=== PATIENT | male | born 1995 | race Caucasian/White ===

== ENCOUNTER 2018-04-18 16:27 | Emergency (ER) | payer BC, OTHER ==
[2018-04-18 16:46] VITALS: BP 119/77
--- NOTE | 2018-04-18 16:54 | EDM.PDOC ---
ED HPI GENERAL MEDICAL PROBLEM - General Chief Complaint: ENT Problem Stated Complaint: EAR PAIN SENT BY JACKIE Time Seen by Provider: 04/18/18 16:41 - History of Present Illness INITIAL COMMENTS - FREE TEXT/NARRATIVE: Patient is 22-year-old male accompanied by mother who was sent to the emergency department from clinic, for further evaluation of ear pain, headache and low- grade fever. Patient said that he developed right-sided ear pain about 4-5 days ago which progressively worsen for last 2-3 days which according by headache. He pointed me towards occipital region where he stated that has been having headache for last couple of days which is constant in nature. Currently he related his discomfort level about 5 or 6 on a scale of 0-10. He has history of ulcerative colitis which he subsequently underwent surgery to total colectomy and now he has a J-pouch. He has been having multiple watery loose stools for last few days which he has been placed on Lomotil. He also takes ciprofloxacin and Flagyl prophylactically as well as probiotic on a routine basis. He stated that today he has been having headache with episode of vomiting, low-grade fever. Headache is associated with photosensitivity. However patient denies any history of migraine or cluster type headache. He denies any use of medication to alleviate pain prior to arrival today. He denies any recent traveling or known sick contacts. He denies any chills, back pain, abdominal pain, chest pain or shortness of breath, numbness or weakness, diplopia, blurred vision, or excessive tearing. He denies any other concern at this time. posterior head Pain Score (Numeric/FACES): 6 - Related Data Allergies Allergy/AdvReac Type Severity Reaction Status Date / Time No Known Allergies Allergy Verified 04/18/18 16:46 Home Meds: Home Meds Acetaminophen/Butalbital/Caff [Fioricet 325-50-40 MG] 1 each PO Q8HR PRN #21 tab 04/18/18 [Rx] Ciprofloxacin [Ciprofloxacin HCl] 500 mg PO BID 04/18/18 [History] Colestipol [Colestipol HCl] 1 g PO TID 04/18/18 [History] Diphenoxylate HCl/Atropine [Lomotil] 1 tab PO Q6H PRN 04/18/18 [History] L.acidoph,Paracasei, B.lactis [Probiotic] 1 each PO DAILY PRN 04/18/18 [History] metroNIDAZOLE [Flagyl] 500 mg PO Q8H 04/18/18 [History] Past Medical History - Past Surgical History GI Surgical History: Reports: Other (See Below) ED ROS ENT - Review of Systems Review Of Systems: ROS reveals no pertinent complaints other than HPI. ED EXAM, ENT - Physical Exam Exam: See Below Exam Limited By: No Limitations General Appearance: Alert, WD/WN, No Apparent Distress Eye Exam: Bilateral Eye: Conjunctival Injection (Negative), EOMI, Nystagmus ( Negative), PERRL Ears: Normal Canal, Hearing Grossly Normal, TM Erythema. No: Mastoid Tenderness , Canal Blood, Canal Discharge, Canal Foreign Body, TM Bulging, TM Perforation Nose: Normal Inspection, Normal Mucousa, No Blood Mouth/Throat: Normal Inspection, Normal Gums, Normal Lips, Normal Oropharynx, Normal Teeth. No: Pharyngeal Erythema, Throat Swelling, Tongue Swelling, Tonsillar Erythema, Tonsillar Exudates, Tonsillar Swelling, Trismus Head: Atraumatic, Normocephalic. No: Scalp Tenderness, Facial Swelling, Facial Tenderness Neck: Normal Inspection, Supple, Non-Tender, Full Range of Motion, Other ( Negative Brudzinski and Kernig signs) Respiratory/Chest: No Respiratory Distress, Lungs Clear, Normal Breath Sounds Cardiovascular: Normal Peripheral Pulses, Regular Rate, Rhythm GI/Abdominal: Normal Bowel Sounds, Soft, Non-Tender Back: Normal Inspection, Full Range of Motion Extremities: Normal Inspection, Normal Range of Motion, Non-Tender, No Pedal Edema, Normal Capillary Refill Neurological: Alert, Oriented, Normal Cognition, Normal Gait, Normal Reflexes, No Motor/Sensory Deficits Psychiatric: Normal Affect, Normal Mood Skin: Warm, Dry, Intact, Normal Color, No Rash Lymphatic: No Adenopathy Course - Vital Signs Last Recorded V/S: Last Vital Signs Temp 36.8 C 04/18/18 19:16 Pulse 94 04/18/18 19:16 Resp 18 04/18/18 19:16 BP 119/77 04/18/18 19:16 Pulse Ox 95 04/18/18 19:16 - Orders/Labs/Meds Orders: Active Orders 24 hr Category Date Time Status CULTURE BLOOD [BC] Stat Lab 04/18/18 17:56 Received CULTURE BLOOD [BC] Stat Lab 04/18/18 18:06 Received CULTURE CSF + SMEAR [RM] Stat Lab 04/18/18 19:39 Received Blood Culture x2 Reflex Set [OM.PC] Stat Oth 04/18/18 16:59 Ordered Labs: Laboratory Tests 04/18/18 04/18/18 04/18/18 Range/Units 17:12 17:25 17:25 WBC 3.80 L (4.23-9.07) K/mm3 RBC 5.22 (4.63-6.08) M/mm3 Hgb 15.0 (13.7-17.5) gm/L Hct 44.1 (40.1-51.0) % MCV 84.5 (79.0-92.2) fl MCH 28.7 (25.7-32.2) pg MCHC 34.0 (32.2-35.5) g/dl RDW Std Deviation 45.1 H (35.1-43.9) fL Plt Count 238 (163-337) K/mm3 MPV 10.2 (9.4-12.3) fl Neut % (Auto) 69.9 H (34.0-67.9) % Lymph % (Auto) 11.3 L (21.8-53.1) % [place] % (Auto) 18.2 H (5.3-12.2) % Eos % (Auto) 0.3 L (0.8-7.0) Baso % (Auto) 0.0 L (0.1-1.2) % Neut # (Auto) 2.66 (1.78-5.38) K/mm3 Lymph # (Auto) 0.43 L (1.32-3.57) K/mm3 [place] # (Auto) 0.69 (0.30-0.82) K/mm3 Eos # (Auto) 0.01 L (0.04-0.54) K/mm3 Baso # (Auto) 0.00 L (0.01-0.08) K/mm3 Manual Slide Review Normal smear PT 11.9 (9.5-12.1) SECONDS INR 1.09 Sodium (136-145) mEq/L Potassium (3.5-5.1) mEq/L Chloride (98-107) mEq/L Carbon Dioxide (21-32) mEq/L Anion Gap (5-15) BUN (7-18) mg/dL Creatinine (0.7-1.3) mg/dL Est Cr Clr Drug Dosing mL/min Estimated GFR (MDRD) (>60) mL/min BUN/Creatinine Ratio (14-18) Glucose (74-106) mg/dL Lactic Acid (0.4-2.0) mmol/L Calcium (8.5-10.1) mg/dL Magnesium (1.8-2.4) mg/dl Total Bilirubin (0.2-1.0) mg/dL AST (15-37) U/L ALT (16-63) U/L Alkaline Phosphatase (46-116) U/L C-Reactive Protein (<1.0) mg/dL Total Protein (6.4-8.2) g/dl Albumin (3.4-5.0) g/dl Globulin gm/dL Albumin/Globulin Ratio (1-2) Urine Color Yellow (Yellow) Urine Appearance Clear (Clear) Urine pH 6.5 (5.0-8.0) Ur Specific [place] 1.025 (1.005-1.030) Urine Protein 1+ H (Negative) Urine Glucose (UA) Negative (Negative) Urine Ketones Negative (Negative) Urine Occult Blood Trace-lysed H (Negative) Urine Nitrite Negative (Negative) Urine Bilirubin 1+ H (Negative) Urine Urobilinogen 1.0 (0.2-1.0) Ur Leukocyte Esterase Negative (Negative) Urine RBC 5-10 H (0-5) /hpf Urine WBC 0-5 (0-5) /hpf Ur Epithelial Cells 0-5 (0-5) /hpf Amorphous Sediment Few H (NOT SEEN) /hpf Urine Bacteria Few (FEW) /hpf Urine Mucus Few (FEW) /hpf CSF Tube Number CSF Volume ml CSF Appearance (CLEAR) CSF Color CSF Supernatant Appear CSF WBC (0-8) /uL CSF RBC (0-8) /mm3 CSF Seg Neutrophils CSF Lymphocytes CSF Diff Comment CSF Glucose (40-70) mg/dl CSF Total Protein (15-45) mg/dl 04/18/18 04/18/18 04/18/18 Range/Units 17:25 17:56 19:39 WBC (4.23-9.07) K/mm3 RBC (4.63-6.08) M/mm3 Hgb (13.7-17.5) gm/L Hct (40.1-51.0) % MCV (79.0-92.2) fl MCH (25.7-32.2) pg MCHC (32.2-35.5) g/dl RDW Std Deviation (35.1-43.9) fL Plt Count (163-337) K/mm3 MPV (9.4-12.3) fl Neut % (Auto) (34.0-67.9) % Lymph % (Auto) (21.8-53.1) % [place] % (Auto) (5.3-12.2) % Eos % (Auto) (0.8-7.0) Baso % (Auto) (0.1-1.2) % Neut # (Auto) (1.78-5.38) K/mm3 Lymph # (Auto) (1.32-3.57) K/mm3 [place] # (Auto) (0.30-0.82) K/mm3 Eos # (Auto) (0.04-0.54) K/mm3 Baso # (Auto) (0.01-0.08) K/mm3 Manual Slide Review PT (9.5-12.1) SECONDS INR Sodium 134 L (136-145) mEq/L Potassium 3.5 (3.5-5.1) mEq/L Chloride 98 (98-107) mEq/L Carbon Dioxide 24 (21-32) mEq/L Anion Gap 15.5 H (5-15) BUN 14 (7-18) mg/dL Creatinine 1.2 (0.7-1.3) mg/dL Est Cr Clr Drug Dosing 95.74 mL/min Estimated GFR (MDRD) > 60 (>60) mL/min BUN/Creatinine Ratio 11.7 L (14-18) Glucose 119 H (74-106) mg/dL Lactic Acid 1.3 (0.4-2.0) mmol/L Calcium 8.7 (8.5-10.1) mg/dL Magnesium 2.2 (1.8-2.4) mg/dl Total Bilirubin 1.9 H (0.2-1.0) mg/dL AST 36 (15-37) U/L ALT 52 (16-63) U/L Alkaline Phosphatase 60 (46-116) U/L C-Reactive Protein 11.6 H* (<1.0) mg/dL Total Protein 7.7 (6.4-8.2) g/dl Albumin 3.6 (3.4-5.0) g/dl Globulin 4.1 gm/dL Albumin/Globulin Ratio 0.9 L (1-2) Urine Color (Yellow) Urine Appearance (Clear) Urine pH (5.0-8.0) Ur Specific [place] (1.005-1.030) Urine Protein (Negative) Urine Glucose (UA) (Negative) Urine Ketones (Negative) Urine Occult Blood (Negative) Urine Nitrite (Negative) Urine Bilirubin (Negative) Urine Urobilinogen (0.2-1.0) Ur Leukocyte Esterase (Negative) Urine RBC (0-5) /hpf Urine WBC (0-5) /hpf Ur Epithelial Cells (0-5) /hpf Amorphous Sediment (NOT SEEN) /hpf Urine Bacteria (FEW) /hpf Urine Mucus (FEW) /hpf CSF Tube Number 1 CSF Volume 1 ml CSF Appearance Clear (CLEAR) CSF Color Colorless CSF Supernatant Appear No xanthochromia CSF WBC 7 (0-8) /uL CSF RBC 69 H (0-8) /mm3 CSF Seg Neutrophils Not Reportable CSF Lymphocytes Not Reportable CSF Diff Comment See note CSF Glucose (40-70) mg/dl CSF Total Protein (15-45) mg/dl 04/18/18 Range/Units 19:39 WBC (4.23-9.07) K/mm3 RBC (4.63-6.08) M/mm3 Hgb (13.7-17.5) gm/L Hct (40.1-51.0) % MCV (79.0-92.2) fl MCH (25.7-32.2) pg MCHC (32.2-35.5) g/dl RDW Std Deviation (35.1-43.9) fL Plt Count (163-337) K/mm3 MPV (9.4-12.3) fl Neut % (Auto) (34.0-67.9) % Lymph % (Auto) (21.8-53.1) % [place] % (Auto) (5.3-12.2) % Eos % (Auto) (0.8-7.0) Baso % (Auto) (0.1-1.2) % Neut # (Auto) (1.78-5.38) K/mm3 Lymph # (Auto) (1.32-3.57) K/mm3 [place] # (Auto) (0.30-0.82) K/mm3 Eos # (Auto) (0.04-0.54) K/mm3 Baso # (Auto) (0.01-0.08) K/mm3 Manual Slide Review PT (9.5-12.1) SECONDS INR Sodium (136-145) mEq/L Potassium (3.5-5.1) mEq/L Chloride (98-107) mEq/L Carbon Dioxide (21-32) mEq/L Anion Gap (5-15) BUN (7-18) mg/dL Creatinine (0.7-1.3) mg/dL Est Cr Clr Drug Dosing mL/min Estimated GFR (MDRD) (>60) mL/min BUN/Creatinine Ratio (14-18) Glucose (74-106) mg/dL Lactic Acid (0.4-2.0) mmol/L Calcium (8.5-10.1) mg/dL Magnesium (1.8-2.4) mg/dl Total Bilirubin (0.2-1.0) mg/dL AST (15-37) U/L ALT (16-63) U/L Alkaline Phosphatase (46-116) U/L C-Reactive Protein (<1.0) mg/dL Total Protein (6.4-8.2) g/dl Albumin (3.4-5.0) g/dl Globulin gm/dL Albumin/Globulin Ratio (1-2) Urine Color (Yellow) Urine Appearance (Clear) Urine pH (5.0-8.0) Ur Specific [place] (1.005-1.030) Urine Protein (Negative) Urine Glucose (UA) (Negative) Urine Ketones (Negative) Urine Occult Blood (Negative) Urine Nitrite (Negative) Urine Bilirubin (Negative) Urine Urobilinogen (0.2-1.0) Ur Leukocyte Esterase (Negative) Urine RBC (0-5) /hpf Urine WBC (0-5) /hpf Ur Epithelial Cells (0-5) /hpf Amorphous Sediment (NOT SEEN) /hpf Urine Bacteria (FEW) /hpf Urine Mucus (FEW) /hpf CSF Tube Number CSF Volume ml CSF Appearance (CLEAR) CSF Color CSF Supernatant Appear CSF WBC (0-8) /uL CSF RBC (0-8) /mm3 CSF Seg Neutrophils CSF Lymphocytes CSF Diff Comment CSF Glucose 65.0 (40-70) mg/dl CSF Total Protein 29.9 (15-45) mg/dl Meds: Medications Discontinued Medications Generic Name Dose Route Start Last Admin Trade Name Freq PRN Reason Stop Dose Admin Dexamethasone 10 mg 04/18/18 17:58 04/18/18 18:22 Dexamethasone IVPUSH 04/18/18 17:59 10 mg ONETIME ONE Administration Diphenhydramine HCl 25 mg 04/18/18 17:57 04/18/18 18:21 Benadryl IVPUSH 04/18/18 17:58 25 mg ONETIME ONE Administration Hydromorphone HCl 0.5 mg 04/18/18 20:11 04/18/18 20:34 Dilaudid IVPUSH 04/18/18 20:12 0.5 mg ONETIME ONE Administration Sodium Chloride 1,000 mls @ 999 mls/hr 04/18/18 17:00 04/18/18 17:25 Normal Saline IV 999 mls/hr ASDIRECTED FLO Administration Prochlorperazine Edisylate 5 51 mls @ 150 mls/hr 04/18/18 17:59 04/18/18 18: 24 mg/ Sodium Chloride IV 04/18/18 18:19 150 mls/hr ONETIME ONE Administration Sodium Chloride 1,000 mls @ 250 mls/hr 04/18/18 20:15 04/18/18 20:34 Normal Saline IV 250 mls/hr ASDIRECTED FLO Administration - Re-Assessments/Exams Free Text/Narrative Re-Assessment/Exam: 04/18/18 18:00 Patient reevaluated at bedside. patient still complains of headache, CT scan of the head showed no acute intracranial abnormality at this time; however, it did show mild splenoid and anterior left ethmoid sinusitis, I ordered dexamethasone 10 mg IV, Compazine 5 IV, Benadryl 25 IV once. Will continue monitor patient at this time 04/18/18 18:40 At this time patient reevaluated at bedside. Patient still complaining of headache which has not been alleviated despite using intravenous medications in ED and seeing the abnormality in the C-reactive protein results. However, at this time made a decision to do the spinal tape to to exclude possibility of meningitis. I did speak to the patient and mother at bedside regarding spinal tape and explained the risks and benefits of obtaining this procedure to exclude possibility of meningitis. Both agrees to do the exam. 04/18/18 21:15 At this time patient reevaluated at bedside. Currently patient is feeling much better with the use of intravenous Dilaudid. Patient appears to be in no acute cardiopulmonary distress. Denies headache at this time. Still waiting for results of CSF analysis. Once CSF analysis negative patient can be discharged home with close follow-up with a primary care provider. Explained this to patient and mother at bedside. Both agrees with the plan and follow up with her primary care provider as mentioned is to instruction. 04/18/18 22:20 CSF results came back negative for any possibility of meningitis. At this time patient alert, oriented 3, awake, and voluntarily moving all 4 of his extremity at the time of discharge. He denies any headache or photosensitivity at this time. He further denies subjective fever or chills. Departure - Departure Time of Disposition: 22:23 Disposition: Home, Self-Care 01 Condition: Good Clinical Impression: Ear pain, right Headache Qualifiers: Headache type: unspecified - Discharge Information Prescriptions: Acetaminophen/Butalbital/Caff [Fioricet 325-50-40 MG] 1 each PO Q8HR PRN #21 tab PRN Reason: Headache/Pain Instructions: General Headache Without Cause, [id number], Earache, Adult Referrals: Jodi Waldrop NP [Primary Care Provider] - 2 Days (Please call your primary care provider for the reevaluation of the today's emergency visit) Forms: ED Department Discharge - My Orders Last 24 Hours: My Active Orders 04/18/18 16:59 Blood Culture x2 Reflex Set [OM.PC] Stat 04/18/18 17:56 CULTURE BLOOD [BC] Stat 04/18/18 18:06 CULTURE BLOOD [BC] Stat 04/18/18 19:39 CULTURE CSF + SMEAR [RM] Stat - Assessment/Plan Last 24 Hours: My Active Orders 04/18/18 16:59 Blood Culture x2 Reflex Set [OM.PC] Stat 04/18/18 17:56 CULTURE BLOOD [BC] Stat 04/18/18 18:06 CULTURE BLOOD [BC] Stat 04/18/18 19:39 CULTURE CSF + SMEAR [RM] Stat
[2018-04-18] MEDS ORDERED: Sodium Chloride 0.9% 1,000 ML IV SCH ×2 (17:00→20:15)
--- NOTE | 2018-04-18 17:48 | CT ---
Head CT Technique: Multiple axial sections through the brain were obtained. Intravenous contrast was not utilized. Comparison: No prior intracranial imaging. Findings: Ventricles along with basal cisterns and sulci over the convexities are within normal limits for the patient's age. No abnormal parenchymal densities are seen. No evidence of intracranial hemorrhage. No midline shift or mass effect is seen. Bone window settings were reviewed which shows mild mucosal thickening within the sphenoid sinus and anterior ethmoid sinus. Other sinuses that are seen appear clear. No acute calvarial abnormality is appreciated. Impression: 1. Mild areas of mucosal thickening within the sphenoid and anterior left ethmoid sinus. 2. No acute intracranial abnormality is seen. Diagnostic code #2
[2018-04-18] MEDS ORDERED: diphenhydrAMINE 50 MG/ML SDV IVPUSH ONE (17:57)
[2018-04-18] MEDS ORDERED: Dexamethasone 4 MG/ML SDV IVPUSH ONE (17:58)
[2018-04-18] MEDS ORDERED: Prochlorperazine 5 MG in Sodium Chloride 0.9% 50 ML IV ONE (17:59)
--- NOTE | 2018-04-18 19:15 | PCM.PREANE ---
Preanesthetic Assessment - Anesthesia/Transfusion/Family Hx Anesthesia History: Prior Anesthesia Without Reaction Family History of Anesthesia Reaction: No Transfusion History: Prior Transfusion Without Reaction Intubation History: Unknown - Review of Systems General: Weakness, Fatigue, Malaise, Chills Pulmonary: No Symptoms Cardiovascular: No Symptoms Gastrointestinal: No Symptoms Neurological: Headache Other: Reports: None - Physical Assessment NPO Status Date: 04/17/18 NPO Status Time: 20:00 Pulse: 94 O2 Sat by Pulse Oximetry: 95 Respiratory Rate: 18 Blood Pressure: 119/77 Temperature: 36.8 C Vital Signs: Last Vital Signs Temp 36.8 C 04/18/18 16:41 Pulse 94 04/18/18 16:41 Resp 18 04/18/18 16:41 BP 119/77 04/18/18 16:41 Pulse Ox 95 04/18/18 16:41 Height: 1.75 m Weight: 112.037 kg ASA Class: 2 Mental Status: Alert & Oriented x3 Airway Class: Mallampati = 1 Dentition: Reports: Normal Dentition Thyro-Mental Finger Breadths: 3 Mouth Opening Finger Breadths: 3 ROM/Head Extension: Limited/Partial (due to headache) Lungs: Clear to Auscultation, Normal Respiratory Effort Cardiovascular: Regular Rate, Regular Rhythm - Lab Values: Laboratory Last Values WBC 3.80 K/mm3 (4.23-9.07) L 04/18/18 17:25 RBC 5.22 M/mm3 (4.63-6.08) 04/18/18 17:25 Hgb 15.0 gm/L (13.7-17.5) 04/18/18 17:25 Hct 44.1 % (40.1-51.0) 04/18/18 17:25 MCV 84.5 fl (79.0-92.2) 04/18/18 17:25 MCH 28.7 pg (25.7-32.2) 04/18/18 17:25 MCHC 34.0 g/dl (32.2-35.5) 04/18/18 17:25 RDW Std Deviation 45.1 fL (35.1-43.9) H 04/18/18 17:25 Plt Count 238 K/mm3 (163-337) 04/18/18 17:25 MPV 10.2 fl (9.4-12.3) 04/18/18 17:25 Neut % (Auto) 69.9 % (34.0-67.9) H 04/18/18 17:25 Lymph % (Auto) 11.3 % (21.8-53.1) L 04/18/18 17:25 [place] % (Auto) 18.2 % (5.3-12.2) H 04/18/18 17:25 Eos % (Auto) 0.3 (0.8-7.0) L 04/18/18 17:25 Baso % (Auto) 0.0 % (0.1-1.2) L 04/18/18 17:25 Neut # (Auto) 2.66 K/mm3 (1.78-5.38) 04/18/18 17:25 Lymph # (Auto) 0.43 K/mm3 (1.32-3.57) L 04/18/18 17:25 [place] # (Auto) 0.69 K/mm3 (0.30-0.82) 04/18/18 17:25 Eos # (Auto) 0.01 K/mm3 (0.04-0.54) L 04/18/18 17:25 Baso # (Auto) 0.00 K/mm3 (0.01-0.08) L 04/18/18 17:25 Manual Slide Review Normal smear 04/18/18 17:25 PT 11.9 SECONDS (9.5-12.1) 04/18/18 17:25 INR 1.09 04/18/18 17:25 Sodium 134 mEq/L (136-145) L 04/18/18 17:25 Potassium 3.5 mEq/L (3.5-5.1) 04/18/18 17:25 Chloride 98 mEq/L (98-107) 04/18/18 17:25 Carbon Dioxide 24 mEq/L (21-32) 04/18/18 17:25 Anion Gap 15.5 (5-15) H 04/18/18 17:25 BUN 14 mg/dL (7-18) 04/18/18 17:25 Creatinine 1.2 mg/dL (0.7-1.3) 04/18/18 17:25 Est Cr Clr Drug Dosing 95.74 mL/min 04/18/18 17:25 Estimated GFR (MDRD) > 60 mL/min (>60) 04/18/18 17:25 BUN/Creatinine Ratio 11.7 (14-18) L 04/18/18 17:25 Glucose 119 mg/dL (74-106) H 04/18/18 17:25 Lactic Acid 1.3 mmol/L (0.4-2.0) 04/18/18 17:56 Calcium 8.7 mg/dL (8.5-10.1) 04/18/18 17:25 Magnesium 2.2 mg/dl (1.8-2.4) 04/18/18 17:25 Total Bilirubin 1.9 mg/dL (0.2-1.0) H 04/18/18 17:25 AST 36 U/L (15-37) 04/18/18 17:25 ALT 52 U/L (16-63) 04/18/18 17:25 Alkaline Phosphatase 60 U/L (46-116) 04/18/18 17:25 C-Reactive Protein 11.6 mg/dL (<1.0) H* 04/18/18 17:25 Total Protein 7.7 g/dl (6.4-8.2) 04/18/18 17:25 Albumin 3.6 g/dl (3.4-5.0) 04/18/18 17:25 Globulin 4.1 gm/dL 04/18/18 17:25 Albumin/Globulin Ratio 0.9 (1-2) L 04/18/18 17:25 Urine Color Yellow (Yellow) 04/18/18 17:12 Urine Appearance Clear (Clear) 04/18/18 17:12 Urine pH 6.5 (5.0-8.0) 04/18/18 17:12 Ur Specific [place] 1.025 (1.005-1.030) 04/18/18 17:12 Urine Protein 1+ (Negative) H 04/18/18 17:12 Urine Glucose (UA) Negative (Negative) 04/18/18 17:12 Urine Ketones Negative (Negative) 04/18/18 17:12 Urine Occult Blood Trace-lysed (Negative) H 04/18/18 17:12 Urine Nitrite Negative (Negative) 04/18/18 17:12 Urine Bilirubin 1+ (Negative) H 04/18/18 17:12 Urine Urobilinogen 1.0 (0.2-1.0) 04/18/18 17:12 Ur Leukocyte Esterase Negative (Negative) 04/18/18 17:12 Urine RBC 5-10 /hpf (0-5) H 04/18/18 17:12 Urine WBC 0-5 /hpf (0-5) 04/18/18 17:12 Ur Epithelial Cells 0-5 /hpf (0-5) 04/18/18 17:12 Amorphous Sediment Few /hpf (NOT SEEN) H 04/18/18 17:12 Urine Bacteria Few /hpf (FEW) 04/18/18 17:12 Urine Mucus Few /hpf (FEW) 04/18/18 17:12 - Allergies Allergies/Adverse Reactions: Allergies Allergy/AdvReac Type Severity Reaction Status Date / Time No Known Allergies Allergy Verified 04/18/18 16:46 - Blood Blood Available: No Product(s) Available: None - Anesthesia Plan Pre-Op Medication Ordered: None - Acknowledgements Pt an Appropriate Candidate for the Planned Anesthesia: Yes Alternatives and Risks of Anesthesia Discussed w Pt/Guardian: Yes Pt/Guardian Understands and Agrees with Anesthesia Plan: Yes PreAnesthesia Questionnaire Dermatologic History: Reports: Other (See Below) Other Dermatologic History: acne - Past Surgical History GI Surgical History: Reports: Other (See Below) - SUBSTANCE USE Smoking Status *Q: Never Smoker Recreational Drug Use History: No - HOME MEDS Home Medications: Home Meds Ciprofloxacin [Ciprofloxacin HCl] 500 mg PO BID 04/18/18 [History] Colestipol [Colestipol HCl] 1 g PO TID 04/18/18 [History] Diphenoxylate HCl/Atropine [Lomotil] 1 tab PO Q6H PRN 04/18/18 [History] L.acidoph,Paracasei, B.lactis [Probiotic] 1 each PO DAILY PRN 04/18/18 [History] metroNIDAZOLE [Flagyl] 500 mg PO Q8H 04/18/18 [History] - CURRENT (IN HOUSE) MEDS Current Meds: Current Medications Sodium Chloride (Normal Saline) 1,000 mls @ 999 mls/hr IV ASDIRECTED FLO Last Admin: 04/18/18 17:25 Dose: 999 mls/hr Discontinued Medications Dexamethasone (Dexamethasone) 10 mg IVPUSH ONETIME ONE Stop: 04/18/18 17:59 Last Admin: 04/18/18 18:22 Dose: 10 mg Diphenhydramine HCl (Benadryl) 25 mg IVPUSH ONETIME ONE Stop: 04/18/18 17:58 Last Admin: 04/18/18 18:21 Dose: 25 mg Prochlorperazine Edisylate 5 (mg/ Sodium Chloride) 51 mls @ 150 mls/hr IV ONETIME ONE Stop: 04/18/18 18:19 Last Admin: 04/18/18 18:24 Dose: 150 mls/hr
--- NOTE | 2018-04-18 20:01 | PCM.SN ---
- Free Text/Narrative Note: Called to ER for spinal tap in ER room 3 at 1902 pt assessment complete consent given time out at 1920 sterile drape and prep sterile technique done throughout procedure betadine swab to back X6 sterile drape local 1% at L3-4 25ga. pencan needle with introducer at L3-4 clear CSF obtained no heme or parasthesia noted four tubes filled with 30 gtts of CSF labled tube1 through tube4 needle withdrawn and bandage placed pt tolerated procedure well no c/o out of room at 1948
[2018-04-18] MEDS ORDERED: HYDROmorphone 0.5 MG/0.5 ML SYRINGE IVPUSH ONE (20:11)
== END 2018-04-18 22:20 | disposition home or self-care (01) ==
LOC: JD.ED 16:27
DX: H92.01 Otalgia, right ear (principal); R51 Headache; Z79.899 Other long term (current) drug therapy
CPT/HCPCS: 36415; 62270; 70450; 70450-26; 80053; 81001; 82945; 83605; 83735; 84157; 85025; 85610; 86140; 87040; 87070; 87205; 89050; 96361; 96365; 96375; 99284; 99284-25; J0780; J1100; J1170; J1200; J7040; J7050

== ENCOUNTER 2022-08-27 20:41 | Emergency (ER) | payer BC, OTHER ==
[2022-08-27 21:09] VITALS: BP 126/88; PULSE 90
[2022-08-27] MEDS ORDERED: Lidocaine 1% 10 ML MDV INJECT ONE (21:42)
== END 2022-08-27 22:45 | disposition home or self-care (01) ==
LOC: JD.ED 20:41
DX: S61.210A Laceration without foreign body of right index finger without damage to nail, initial encounter (principal); Z86.16 Personal history of COVID-19; W26.0XXA Contact with knife, initial encounter
CPT/HCPCS: 12001; 99282; J3490